=== PATIENT | female | born 1975 | race Caucasian/White ===

== ENCOUNTER 2023-10-04 20:35 | Emergency (ER) | payer BC ==
[~2023-10-04] VITALS: Wt 65.8 kg
[2023-10-04] MEDS ORDERED: PREDNISONE50 MG PO (22:47)
[2023-10-04] MEDS ORDERED: AMOX-CLAV 875-1 EACH PO (22:47)
== END 2023-10-04 22:55 | disposition home or self-care (01) ==
LOC: ED 20:35
DX: H66.93 Otitis media, unspecified, bilateral (principal); R42 Dizziness and giddiness